=== PATIENT | male | born 1970 | race African-American/Black ===

== ENCOUNTER 2017-03-30 12:46 | Observation (INO) ==
[2017-03-30] MEDS ORDERED: ONDANSETRON 4 MG/2 ML VIAL IV PRN ×2 (13:08→15:24)
[2017-03-30] MEDS ORDERED: ENOXAPARIN 100 MG/ML SYRINGE SUBCUT STA (13:08)
[2017-03-30] MEDS ORDERED: ALUM/MAG/SIMETH/LIDO VISC 1:1 30 ML BOTTLE PO STA (13:08)
[2017-03-30] MEDS ORDERED: NITROGLYCERIN SL 0.4 MG TABLET SL PRN (13:08)
[2017-03-30] MEDS ORDERED: MORPHINE 2 MG/1 ML SYRINGE IV PRN ×2 (13:08→15:24)
[2017-03-30] MEDS ORDERED: ASPIRIN 325 MG TABLET PO STA (13:08)
[2017-03-30] MEDS ORDERED: NITROGLYCERIN 2% OINT 1 INCH/GM PACK TOP STA (13:08)
--- NOTE | 2017-03-30 13:09 | EKG Report ---
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
[2017-03-30 13:10] LABS: Basophils % 0.5 % (0.0-0.8); Eosinophils % 0.7 % (0.00-10.9); Hematocrit 39.5 VOL% (42.0-52.0); Hemoglobin 13.1 GM/DL (14.0-18.0); Lymphocytes # 2.3 10*3/uL (1.4-4.0); Lymphocytes % 51.7 % (21.2-54.2); Mean Corpuscular HGB Conc 33.2 GM/DL (32-36); Mean Corpuscular Hemoglobin 31 PG (27-34); Mean Corpuscular Volume 94.5 FL (87-102); Mean Platelet Volume 8.9 FL (9.6-12.0); Monocytes # 0.4 10*3/uL (0.11-0.8); Monocytes % 10.1 % (1.7-12.7); Neutrophils # 1.6 10*3/uL (1.4-7.4); Platelet Count 213 T/CUMM (130-400); Red Blood Count 4.18 MC/CUMM (3.8-5.5); Red Cell Distribution Width 12.4 % (9.3-17.3); White Blood Count 4.4 T/CUMM (4-12)
[2017-03-30 13:18] LABS: INR 1.3; PT Patient Result 14.4 SECS; Partial Thromboplastin Time 37.8 SECS (0-40)
[2017-03-30 13:37] LABS: Apearance,Urine CLEAR (Clear); Bilirubin,Urine Negative (Negative); Blood, Urine Negative (Negative); Glucose,Urine (UA) Negative (Negative); Ketones,Urine Negative (Negative); Mucus,Urine Occasional /LPF (Occasional); Nitrite,Urine Negative (Negative); Protein,Urine Negative; Sperm,Urine Occasional /HPF (Negative); Squamous Epithelial Cell,Urine Occasional /HPF (0-10); Urine Color Yellow (Yellow); Urine Specific Gravity 1.016 (1.001-1.035); Urine Urobilinogen < 2.0 EU/DL (0.2-1.0); WBC,Urine <1 /HPF (0-6)
--- NOTE | 2017-03-30 13:37 | Emergency Department Note ---
Omer Frey Hilary, am scribing for, and in the presence of, Rigoberto Melvin MD 13: 30. Ngozi Frey James D, MD, personally performed the services described in this documentation, ascribed by Porsha Tello in my presence, and it is both accurate and complete [id number] . Arrival - Arrival Chief Complaint: Chest Pain Stated Complaint: chest pain times 2-3 weeks ED Nursing Triage Note: Patient transferred from Dr. Can office for complaint of chest pain that started 2-3 weeks ago. He reports his pain was worse yesterday in comparison to today. His pain is midsternal and radiates to his left arm and jaw. Mode of Arrival: Stretcher Limitations: No Limitations Source: Patient, RN Notes Reviewed Time Seen by Provider: 03/30/17 13:08 - History of Present Illness HPI Narrative: Pt is a 46 y/o male transferred from Dr. Can's office for c/o chest pain which onset 2-3 weeks ago. He confirms SOB, nausea and chest pain but denies diaphoresis. Pt says that when the pain come on it isn't generally due to exertion or activity but once it starts he gets SOB real quick. He confirms to smoking a pack every day and a half and is trying to quit with the patch but Dr Can wouldn't give it to him with his chest pain. Pt was given a nitro tablet and states the pain is resolved now. Allergies/Adverse Reactions: Allergies Allergy/AdvReac Type Severity Reaction Status Date / Time No Known Allergies Allergy Unverified 02/09/16 08:45 Home Medications: Home Medications Medication Instructions Recorded Confirmed Type No Known Home Medications [No 03/30/17 03/30/17 History Known Home Medications] Review of System - Review of System 12 point system: reviewed and no additional remarkable complaints except as stated - Review of System Constitutional: Absent: diaphoresis, fever Respiratory: Present: respiratory distress. Absent: cough Cardiovascular: Present: chest pain Gastrointestinal: Present: nausea. Absent: vomiting Musculoskeletal: Present: arm pain (left arm pain) Medical,Surgical,& Family Hx - Medical History Respiratory: History of: COPD - Family History Family History: Reports;: Family Cancer (father had prostate cancer and maternal grandfather also had cancer ) - Social History Smoking Status: Current every day smoker Type of Drug Use: Marijuana Exam Physical Examination: GENERAL: This is a well-nourished, well-developed male in no apparent distress. VITAL SIGNS: Temperature: 97.0 Pulse: 71 Respiratory: 20 Blood Pressure: 132/ 81 O2SAT: 100 HEENT: Head is normocephalic and atraumatic. Pupils are equally round and reactive to light. Extraocular movement are intact. Oropharynx is benign with moist mucous membranes. NECK: Neck is soft and supple without tenderness. There are no masses. There is no lymphadenopathy. LUNGS: Lungs are clear to auscultation bilaterally. Chest rises symmetrically. There is no chest wall tenderness. CV: Heart is regular rate and rhythm without murmurs, rubs, or gallops. ABDOMEN:Abdomen is soft, non-tender to palpation. There are no abnormal masses palpated. There is no organomegaly. Bowel sounds are present and active. SKIN: Skin is warm and dry. No rash. EXTREMITIES: Patient has full range of motion without tenderness. There is no pedal edema. NEUROLOGIC: Awake, alert, and oriented x4. Cranial nerves II through XII are grossly intact. There are no motorsensory deficits. PSYCHIATRIC: Normal affect. Normal mood. Vital Signs: Vital Signs Temperature 97.0 F L 03/30/17 12:48 Pulse Rate 71 03/30/17 12:48 Respiratory Rate 20 03/30/17 13:06 Blood Pressure 132/81 03/30/17 12:48 O2 Sat by Pulse Oximetry 100 03/30/17 12:48 Course - Consultations Consultation #1: Discussed with hospitalist. Patient will be admitted to their service. Time: 14:24 Results - Labs CBC & BMP: 03/30/17 13:00 03/30/17 13:00 Lab Results: I have reviewed the patients labs Labs: Laboratory Tests 03/30/17 13:00 WBC 4.4 RBC 4.18 Hgb 13.1 L Hct 39.5 L MPV 8.9 L Neut % (Auto) 37.0 L Laboratory Tests 03/30/17 03/30/17 03/30/17 13:00 13:00 13:00 Sodium 138 Potassium 4.0 Chloride 105 Carbon Dioxide 28 Calculated Osmolality 272.7 L Urine Urobilinogen < 2.0 H U Cannabinoids Screen Positive H - EKG EKG results: interpreted by ERMD - Impressions EKG: Sinus bradycardia with a rate of 59, nonspecific intraventricular conduction delay, early repolarization, normal axis. - Diagnostic Findings Procedure: Chest x-ray: image reviewed by me (No infiltrates, no pleural effusions, no cardiomegaly.) Disposition Clinical Impression: Chest pain, Family history of coronary artery disease in mother Case discussed with: patient Disposition: Still a Patient Condition: Stable
[2017-03-30 13:40] LABS: Alanine Aminotransferase 19 U/L (16-61); Albumin 3.7 G/DL (3.4-5.0); Alkaline Phosphatase 74 U/L (45-117); Aspartate Amino Transferase 16 U/L (0-37); Bilirubin,Total < 0.39 MG/DL (0.2-1.0); Blood Urea Nitrogen 10 MG/DL (7-18); Calcium 8.9 MG/DL (8.5-10.1); Glucose 84 MG/DL (74-106); Osmolality,Calculated 272.7 MOS/KG (273-304); Sodium 138 MMOL/L (136-145); Troponin I Only < 0.015 NG/ML (0.00-0.045)
[2017-03-30] MEDS ORDERED: NITROGLYCERIN 2% OINT 1 INCH/GM PACK TOP ONE (13:42)
[2017-03-30] MEDS ORDERED: ASPIRIN 325 MG TABLET ONE (13:42)
[2017-03-30] MEDS ORDERED: ALUM/MAG/SIMETH/LIDO VISC 1:1 30 ML BOTTLE PO ONE (13:42)
[2017-03-30 13:45] LABS: Barbiturates Screen,Urine Negative (Negative); Benzodiazepines Screen,Urine Negative (Negative); Cannabinoid Screen,Urine Positive (Negative); Opiate Screen,Urine Negative (Negative); Phencyclidine Screen,Urine Negative (Negative)
[2017-03-30] MEDS ORDERED: ENOXAPARIN 100 MG/ML SYRINGE SUBCUT ONE (13:47)
--- NOTE | 2017-03-30 14:34 | XRay Report ---
Exam: Chest 2 views Date: March 30, 2017 at 1:13 PM Comparison: None Reason: Shortness of breath Findings: The cardiac silhouette is normal in size. No focal consolidation, pneumothorax or pleural effusion is identified. No acute osseous process is seen. Impression: No acute cardiopulmonary process is identified. PROCEDURE INTERPRETED AT [facility] DEPARTMENT OF RADIOLOGY Final Report Signed by: Dr. Vicente Vargas
--- NOTE | 2017-03-30 15:21 | Hospitalist History & Physical ---
<Kamla Matthew - Last Filed: 03/30/17 15:14> Assessment and Plan - Time spent with patient Time spent with patient: Greater than 30 minutes (1) Chest pain Status: Acute Assessment and plan: Mr. Friedman 46-year-old -[place] male [facility]. Patient will be admitted to telemetry for cardiac monitoring, cardiology consult, serial EKGs and troponins. Patient has been discussed with Dr. Garcia and further recommendations to follow. Current Visit: Yes (2) Family history of coronary artery disease in mother Status: Acute Current Visit: Yes (3) Frequent headaches Status: Acute Current Visit: Yes History of Present Illness Chief complaint: Chest pain History of present illness: Mr. Friedman is a 46 year old male with history of COPD and smokes one half packs of cigarettes per day presenting to the ED from Dr. Can's office with complaints of chest pain. Patient states he had a follow-up appoint with Dr. Can and was trying to get some patches to stop smoking until Dr. Can he been having chest pains for the last 2-3 weeks. Patient states the pain is intermittent rates it about a 5 out of 10 but he states it got worse last night and this morning. Patient states with the left side of his chest that radiated to his left shoulder and jaw. Patient states the pain is associated with some shortness of breath and nausea but no diaphoresis. Patient is also complaining of frequent headaches over the last 3-4 months as well. Patient states when he does do strenuous activity like walking up the stairs he does get short of breath and had chest pain as well. Patient has a family history of MIs. Upon exam patient has no complaints of chest pain at this time. He states the pain went away with nitroglycerin tab. He is afebrile vital signs are stable and his labs are normal. First set of troponins are negative and his EKG is okay. After discussion with Dr. Melvin the ED physician Dr. Garcia the hospitalist, it was decided patient would be admitted for chest pain rule out. Home Medications Medication Instructions Recorded Confirmed Type No Known Home Medications [No 03/30/17 03/30/17 History Known Home Medications] Allergies Allergy/AdvReac Type Severity Reaction Status Date / Time No Known Allergies Allergy Unverified 02/09/16 08:45 Medical,Surgical,& Family Hx - Medical History Respiratory: History of: COPD - Surgical History Cardiac Surgeries: Patient Denies: Cardiac Catheterization Abdominal Surgeries: Patient denies: Cholecystectomy - Family History Family History: Reports;: Family Cancer (father had prostate cancer and maternal grandfather also had cancer ), Family Heart Disease, Family Hypertension - Social History Smoking Status: Current every day smoker Have you smoked in the last 12 months: Yes Time spent discussing smoking cessation with patient: 3 to 10 minutes Frequency of Alcohol Use: None Type of Drug Use: Marijuana Functional capacity: independent ambulation Review of systems: A complete 10 system review of systems was obtained and pertinent negatives and positives per HPI Exam - Constitutional Vitals: Period Temp Pulse Resp BP Sys/Love Pulse Ox Last 24 Hr 97.0 F-97.0 F 71-71 20-20 132-132/81-81 100 Exam: Constitutional System: No distress. No tremulousness. Head: Normocephalic, atraumatic. Ears, Nose and Throat System: No evidence of Otitis or Mastoiditis. No epistaxis or discharge Eyes System: Pupils equal, round, and reactive. Extraocular muscles intact. Neck: Supple, without adenopathy, No jugular venous distention. No thyromegaly, neck mass, or prior surgery apparent. Respiratory System: Chest clear to auscultation. Cardiovascular System: Heart with regular rate and rhythm. No murmur. GI System: Abdomen soft, nontender. Normo active bowel sounds present. Musculoskeletal System: limbs with no pedal edema. Full distal pulses. Neurological System: No discernable sensory deficit. No aphasia Psychiatric System: Conversation is rational Results - Labs CBC & BMP: 03/30/17 13:00 03/30/17 13:00 Lab Results: I have reviewed the past 24 hour labs - Diagnostic Findings Procedure: Chest x-ray: report reviewed by me (Normal) <Alfa Garcia - Last Filed: 03/30/17 16:28> Assessment and Plan (1) Chest pain Status: Acute Assessment and plan: Assuming that the troponins are negative, the patient should likely have a stress test. If it is normal, we can discharge him home. Cardiology has been consulted for performance of the stress test. This note was completed using [employer] voice recognition software. There may be clay artist errors as a result. Current Visit: Yes History of Present Illness History of present illness: Mr. Friedman is a 46 year old male The patient has an intermittent history of chest pain as described above. He says that he has spells for 2 or 3 days at a time, and then they just resolve spontaneously. He notes some radiation into his back, and also into his neck. There is no significant associated dyspnea or nausea. He smokes, and also has a strong family history of heart disease. He reports no other medical problems except for COPD. Results - Labs CBC & BMP: 03/30/17 13:00 03/30/17 13:00 Lab Results: I have reviewed the past 24 hour labs (EKG shows a sinus mechanism with global J-point elevation, consistent with early repolarization)
[2017-03-30] MEDS ORDERED: diphenhydrAMINE CAP 25 MG CAPSULE PO PRN (15:24)
[2017-03-30] MEDS ORDERED: PROMETHAZINE 25 MG TABLET PO PRN (15:24)
[2017-03-30] MEDS ORDERED: DOCUSATE SODIUM 100 MG CAPSULE PO PRN (15:24)
[2017-03-30] MEDS ORDERED: NICOTINE 21 MG/24 HR PATCH TRANSDERM PRN (15:24)
[2017-03-30] MEDS ORDERED: ACETAMINOPHEN 325 MG TABLET PO PRN (15:24)
[2017-03-30] MEDS ORDERED: guaiFENesin/DM ER 600-30 MG TABLET PO PRN (15:24)
--- NOTE | 2017-03-30 16:28 | EKG Report ---
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
[2017-03-30 17:05] LABS: Troponin I Only < 0.015 NG/ML (0.00-0.045)
[2017-03-30 17:12] LABS: Risk Ratio 4.83; Thyroid Stimulating Hormone 1.67 uIU/ml (0.358-3.74); VLDL CHOLESTEROL 13.2 MG/DL
[2017-03-30] MEDS: PANTOPRAZOLE 40 MG TABLET PO SCH (17:39)
[2017-03-30] MEDS: SODIUM CHLORIDE 0.9% 1,000 ML IV SCH (17:40)
[2017-03-31 02:30] LABS: Troponin I Only < 0.015 NG/ML (0.00-0.045)
[2017-03-31 06:26] LABS: Basophils % 0.5 % (0.0-0.8); Eosinophils # 0.1 10*3/uL (0.0-0.87); Eosinophils % 1.3 % (0.00-10.9); Hematocrit 36.7 VOL% (42.0-52.0); Hemoglobin 12.4 GM/DL (14.0-18.0); Lymphocytes # 1.9 10*3/uL (1.4-4.0); Lymphocytes % 49.1 % (21.2-54.2); Mean Corpuscular HGB Conc 33.8 GM/DL (32-36); Mean Corpuscular Hemoglobin 31 PG (27-34); Mean Corpuscular Volume 91.3 FL (87-102); Mean Platelet Volume 9.4 FL (9.6-12.0); Monocytes # 0.5 10*3/uL (0.11-0.8); Monocytes % 13.5 % (1.7-12.7); Neutrophils # 1.4 10*3/uL (1.4-7.4); Neutrophils % 35.6 % (38.7-73.9); Platelet Count 211 T/CUMM (130-400); Red Blood Count 4.02 MC/CUMM (3.8-5.5); Red Cell Distribution Width 12.3 % (9.3-17.3); White Blood Count 3.9 T/CUMM (4-12)
[2017-03-31 06:55] LABS: Hypochromasia 1+; Lymphocytes 44 % (20-55); Platelet Estimate Adequate; Segmented Neutrophils 38 % (50-85); Total Cells Counted 100
[2017-03-31 07:00] LABS: Troponin I Only < 0.015 NG/ML (0.00-0.045)
[2017-03-31] MEDS: SODIUM CHLORIDE 0.9% 1,000 ML IV SCH ×2 (07:00→07:22)
[2017-03-31 07:03] LABS: Calcium 8.6 MG/DL (8.5-10.1); Osmolality,Calculated 278.4 MOS/KG (273-304); Potassium 4.2 MMOL/L (3.5-5.1)
[2017-03-31] MEDS: PANTOPRAZOLE 40 MG TABLET PO SCH (08:30)
[2017-03-31] MEDS ORDERED: ENOXAPARIN 40 MG/0.4 ML SYRINGE SUBCUT SCH (09:00)
[2017-03-31] MEDS ORDERED: ASPIRIN EC 81 MG TABLET PO SCH (11:30)
[2017-03-31 11:50] VITALS: BP 114/66
--- NOTE | 2017-03-31 12:28 | Discharge Summary ---
Hospital Course - Hospital Course Hospital Course: This patient was admitted to the hospital with atypical chest discomfort. Myocardial infarction was ruled out by EKG and enzymes. The patient had cardiology evaluation with Dr. Best the following day. Dr. Best felt that outpatient stress test was indicated and was arranging appointment for the patient to follow-up for the stress test. The patient is not any chest pain at present time and is stable. The patient is ready for discharge home and follow- up with Dr. Can as an outpatient. At the time of discharge, chest clear, abdomen soft, extremities without edema. [id number] discharge time 28 minutes - Time spent with patient Time with patient DS: Less than 30 minutes Diagnosis - Discharge Diagnosis (1) Chest pain Status: Resolved (2) Hypercholesterolemia Status: Chronic Specialty Discharge - Follow Up or Referrals Follow up with: Rufino Best MD [Physician] - 1 Week (Patient will need to be set up for outpatient stress test at [facility]. He will need to follow up with Dr. Best in clinic after stress test will also need EKG, CBC, BMP with Mg+.) Discharge Plan - Discharge Data Disposition: Disch To Home/Self Care Condition at Discharge: Stable Discharge Diet: heart healthy Activity: resume usual activities as tolerated - Discharge Medications New Atorvastatin [Lipitor] 10 mg PO BEDTIME #60 tablet Aspirin EC Tab 81 mg PO DAILY tablet - Follow Up or Referral Follow Up: Rufino Best MD [Physician] - 1 Week (Patient will need to be set up for outpatient stress test at [facility]. He will need to follow up with Dr. Best in clinic after stress test will also need EKG, CBC, BMP with Mg+.) - Forms/Instructions Exam - Constitutional Vitals: Period Temp Pulse Resp BP Sys/Love Pulse Ox Last 24 Hr 97.4 F-98.2 F 69-74 18-69 114-122/56-71 94-100 Discharge Results Labs on day of discharge: Labs from last 24 hours 03/31/17 03/31/17 03/31/17 06:02 06:02 06:01 WBC 3.9 L RBC 4.02 Hgb 12.4 L Hct 36.7 L MCV 91.3 MCH 31 MCHC 33.8 RDW 12.3 Plt Count 211 MPV 9.4 L Neut % (Auto) 35.6 L Lymph % (Auto) 49.1 [place] % (Auto) 13.5 H Eos % (Auto) 1.3 Baso % (Auto) 0.5 Neut # (Auto) 1.4 Lymph # (Auto) 1.9 [place] # (Auto) 0.5 Eos # (Auto) 0.1 Baso # (Auto) 0.0 Total Counted 100 Immature Gran % 0.0 Nucleated RBC % 0.0 Immature Gran # 0.00 Segmented Neutrophils 38 L Lymphocytes 44 Monocytes 17 H Basophils 1.0 H Nucleated RBCs # 0.00 Platelet Estimate Adequate Hypochromasia 1+ Morphology Comment Sodium 140 Potassium 4.2 Chloride 107 Carbon Dioxide 25 Anion Gap 12.2 BUN 12 Creatinine 1.20 GFR Calculation 94 BUN/Creatinine Ratio 10.00 Glucose 94 Calculated Osmolality 278.4 Calcium 8.6 Magnesium 2.0 Total Creatine Kinase 159 CK-MB (CK-2) < 1.0 Troponin I < 0.015 Triglycerides Cholesterol LDL Cholesterol VLDL Cholesterol HDL Cholesterol Heart Disease Risk Ratio Free T4 TSH 3rd Generation 03/30/17 03/30/17 03/30/17 23:56 18:43 16:28 WBC RBC Hgb Hct MCV MCH MCHC RDW Plt Count MPV Neut % (Auto) Lymph % (Auto) [place] % (Auto) Eos % (Auto) Baso % (Auto) Neut # (Auto) Lymph # (Auto) [place] # (Auto) Eos # (Auto) Baso # (Auto) Total Counted Immature Gran % Nucleated RBC % Immature Gran # Segmented Neutrophils Lymphocytes Monocytes Basophils Nucleated RBCs # Platelet Estimate Hypochromasia Morphology Comment Sodium Potassium Chloride Carbon Dioxide Anion Gap BUN Creatinine GFR Calculation BUN/Creatinine Ratio Glucose Calculated Osmolality Calcium Magnesium Total Creatine Kinase 163 175 CK-MB (CK-2) < 1.0 < 1.0 Troponin I < 0.015 < 0.015 < 0.015 Triglycerides Cholesterol LDL Cholesterol VLDL Cholesterol HDL Cholesterol Heart Disease Risk Ratio Free T4 TSH 3rd Generation 03/30/17 03/30/17 16:28 16:28 WBC RBC Hgb Hct MCV MCH MCHC RDW Plt Count MPV Neut % (Auto) Lymph % (Auto) [place] % (Auto) Eos % (Auto) Baso % (Auto) Neut # (Auto) Lymph # (Auto) [place] # (Auto) Eos # (Auto) Baso # (Auto) Total Counted Immature Gran % Nucleated RBC % Immature Gran # Segmented Neutrophils Lymphocytes Monocytes Basophils Nucleated RBCs # Platelet Estimate Hypochromasia Morphology Comment Sodium Potassium Chloride Carbon Dioxide Anion Gap BUN Creatinine GFR Calculation BUN/Creatinine Ratio Glucose Calculated Osmolality Calcium Magnesium Total Creatine Kinase CK-MB (CK-2) Troponin I Triglycerides 66 Cholesterol 251 H LDL Cholesterol 176.0 VLDL Cholesterol 13.2 HDL Cholesterol 52 Heart Disease Risk Ratio 4.83 Free T4 0.96 TSH 3rd Generation 1.670 DS: Provider Date of admission: 03/30/17 14:36 Primary care physician: . No PCP Attending physician on admission: Alfa Garcia MD Consults: 03/30/17 15:24 Consult to Physician [CONS] Routine Comment: chest pain rule out Consulting Provider: Cardiology - [facility] When should Consulting Provider be notified: Now Consult to Specialist Group: Cardiology Person Notified: SUJIT Date Notified: 03/31/17 Time Notified: 08:10 03/30/17 17:15 Consult to Pharmacy [CONS] Routine Reason for Pharmacy Consult: Adjust Meds Renal Funct Discharging clinician: Lew Porter MD
--- NOTE | 2017-03-31 12:30 | Cardiology Consult Note ---
I, Maria L Anderson RN, am scribing for, and in the presence of, Rufino Best MD 12:29. Assessment and Plan - Time spent with patient Time spent with patient: Greater than 30 minutes (Due to assessment, planning, documentation, and medication review) (1) Chest pain Status: Acute Assessment and plan: The patient has atypical chest discomfort with negative cardiac enzymes and EKG. I do think with his risk factors she should get cardiac ischemic screening. I discussed doing this as an inpatient versus an outpatient, and he strongly prefers to be discharged home and get this done as an outpatient. I would like for him to get a nuclear stress test at [facility], and he can follow-up with me after the stress test has been completed. He will also need EKG, CBC, BMP and a magnesium level. We will add ASA 81 mg by mouth daily. From a cardiac standpoint, he is stable for discharge home and outpatient workup /follow-up. Current Visit: Yes (2) Hypercholesterolemia Status: Acute Assessment and plan: Per fasting lipid panel, his cholesterol level was noted to be elevated at 251 with normal triglyceride level of 66. We will add low-dose atorvastatin 10 mg by mouth nightly. Current Visit: Yes (3) Tobacco use Status: Chronic Assessment and plan: Smoking cessation was addressed. Current Visit: Yes (4) Family history of coronary artery disease in mother Status: Chronic Current Visit: No History of Present Illness - Data of Consult Patient: new to practice Consult date: 03/31/17 Requesting Physician: Kamla Matthew - Consult Narrative Reason for consult: chest pain History of present illness: PRIMARY SIGN LANGUAGE TRANSLATOR: NONE PCP: DR. NATALIE NOEL Mr. Estes is a 46 year old black male who has never been evaluated by a visual c developer. Risk factors significant for: Hypercholesterolemia (per [facility] this admission), tobacco abuse, and family history of coronary artery disease. Past medical history includes COPD. Patient was admitted to telemetry floor yesterday after presenting to the emergency room from Dr. Noel's office for complaints of chest pain. EKG was negative for acute, ischemic finding. Serial cardiac biomarkers have been negative. He did receive sublingual nitroglycerin 1 per EMS while in route to the emergency room yesterday, and his chest pain was relieved. Cardiology has been consulted to evaluate chest pain and rule out cardiac etiology. The patient describes a very atypical chest discomfort. It is like a pressure in the center of his chest, but it is present for days at a time. On a scale of 0-10, he rates his chest discomfort as 5, and on occasion he does admit to the chest pressure radiating to his left arm and occasionally to left jaw. No associated diaphoresis, presyncope, palpitations, but he does experience nausea with no vomiting. He cannot identify any aggravating or alleviating factors. He also reports to sometimes experiencing the same type of chest pressure while at rest, but reports that it usually goes away on its own. It is not associated with exertion. The Patient does smoke cigarettes and admits to a half pack per day since the age of 15. EKG today reveals sinus rhythm, pulse rate 70s, and no acute ST segment changes. Labs reviewed. Anemia noted with H&H of 12.4 and 30 6. and normal platelet count 211,000. Potassium is 4.2 and magnesium 2.0 his creatinine is 1.2 with a GFR of 94. UDS positive for cannabinoids. Current Medications Acetaminophen (Tylenol Tab) 325 mg PO Q4H PRN PRN Reason: fever, headache/body aches Last Admin: 03/30/17 18:44 Dose: 325 mg Hydrocodone Bitart/Acetaminophen ([place] 5-325) 1 tablet PO Q4H PRN PRN Reason: Pain Mild (1-3) Diphenhydramine HCl (Benadryl Cap) 25 mg PO Q6H PRN PRN Reason: Itching Docusate Sodium (Colace Cap) 100 mg PO BID PRN PRN Reason: Constipation Enoxaparin Sodium (Lovenox) 40 mg SUBCUT Q24H [facility] Last Admin: 03/31/17 08:30 Dose: 40 mg Guaifenesin/Dextromethorphan (Mucinex Dm) 1 tablet PO BID PRN PRN Reason: Congestion Sodium Chloride (Ns) 1,000 mls @ 75 mls/hr IV .[id number] [facility] Last Admin: 03/31/17 07:22 Dose: Not Given Morphine Sulfate () 2 mg IV 1X ED PRN PRN Reason: Chest Pain Morphine Sulfate () 2 mg IV Q4H PRN PRN Reason: Pain Severe (8-10) Nicotine (Nicoderm Cq 21) 1 patch TRANSDERM DAILY PRN PRN Reason: Nicotine Cravings Last Admin: 03/30/17 18:45 Dose: 1 patch Nitroglycerin (Nitrostat) 0.4 mg SL Q5M PRN PRN Reason: Chest Pain Ondansetron HCl (Zofran Inj) 4 mg IV 1X ED PRN PRN Reason: Nausea Ondansetron HCl (Zofran Inj) 4 mg IV Q4H PRN PRN Reason: Nausea Pantoprazole Sodium (Protonix Tab) 40 mg PO DAILY [facility] Last Admin: 03/31/17 08:30 Dose: 40 mg Promethazine HCl (Phenergan Tab) 25 mg PO Q6H PRN PRN Reason: Nausea CC: Lew Porter MD - Home Medications and Allergies Home Medications: Home Medications Medication Instructions Recorded Confirmed Type No Known Home Medications [No 03/30/17 03/30/17 History Known Home Medications] Allergies/Adverse Reactions: Allergies Allergy/AdvReac Type Severity Reaction Status Date / Time No Known Allergies Allergy Unverified 02/09/16 08:45 - Constitutional Constitutional: Absent: anorexia, chills, daytime sleepiness, excessive sweating , fatigue, fever(s), frequent falls, night sweats, stops breathing during sleep , weakness, weight gain, weight loss - EENT Eyes: Absent: blurry vision, loss of vision Nose, mouth and throat: Absent: dysphagia, epistaxis, neck mass, neck pain, throat swelling, tongue swelling - Cardiovascular Cardiovascular: Present: chest pain at rest, chest pain with activity, dyspnea on exertion, radiating jaw, neck or arm pain. Absent: claudication, diaphoresis , dyspnea, edema, lightheadedness, orthopnea, palpitations, PND - Respiratory Respiratory: Present: cough, dyspnea on exertion, wheezing. Absent: dyspnea, hemoptysis, pain on inspiration, change in phlegm color - Gastrointestinal Gastrointestinal: Absent: abdominal pain, constipation, diarrhea, dysphagia, early satiety, hematemesis, melena, nausea, vomiting, jaundice - Genitourinary Genitourinary: Present: testicular mass. Absent: dysuria, flank pain, hematuria , nocturia - Musculoskeletal Musculoskeletal: Absent: arthralgias, joint swelling, myalgias - Neurological Neurological: Absent: abnormal gait, abnormal speech, behavioral changes, convulsions, dizziness, syncope, tremor(s) - Psychiatric Psychiatric: Absent: anxiety, confusion, depression - Endocrine Endocrine: Absent: cold intolerance, heat intolerance - Hematologic/Lymphatic Hematologic/Lymphatic: Absent: easy bleeding, easy bruising Medical,Surgical,& Family Hx - Medical History Cardio: No history of: Cardiac Dysrhythmia, CHF, CAD, Hypertension, MA, PVD, Valvular Heart Disease Psychological: No history of: Anxiety Disorders Neurology: No history of: Cerebrovascular Accident, Dementia Endocrine: No history of: Diabetes Mellitus (IDDM), Diabetes Mellitus (NIDDM), Dyslipidemia, Thyroid Disorder Respiratory: History of: COPD No history of: Obstructive Sleep Apnea, Pulmonary Embolism Renal: No history of: Renal Failure, Renal Problems Genitourinary: No history of: Prostate Problems Gastrointestinal: No history of: Esophageal Varices, GERD, Gastrointestinal Bleed Musculoskeletal: History of: Back/Neck Problems No history of: Degenerative Disk Disease Hematology: No history of: Anemia, Blood Transfusion Reaction Other: No history of: Cancer - Surgical History Cardiac Surgeries: Patient Denies: Cardiac Catheterization, Cardiac Surgery Abdominal Surgeries: Patient denies: Cholecystectomy - Family History Family History: Reports;: Family Cancer (father had prostate cancer and maternal grandfather also had cancer ), Family Heart Disease, Family Hypertension - Social History Smoking Status: Current every day smoker Frequency of Alcohol Use: None Type of Drug Use: Marijuana Physical Examination Vital Signs Temp Pulse Resp BP Pulse Ox 97.0 F L 71 20 132/81 100 03/30/17 12:48 03/30/17 12:48 03/30/17 12:48 03/30/17 12:48 03/30/17 12:48 General: Present: No Apparent Distress HEENT: Present: PERRL, Normocephaly Neck: Present: Supple Neck, Midline Trachea, No JVD/HJR, No Masses, No Bruit Cardiac: Present: Reg Rate and Rhythm, No Murmur. Absent: Tachycardia, Bradycardia Lungs: Present: Clear Ascult./Percussion, Wheezes (Slight inspirational wheezes throughout) Neuro: Present: Grossly Intact. Absent: Numbness, Tingling, Weakness, Resting Tremor, Essential Tremor Abdomen: Present: Soft, Active Bowel Sounds, No Masses, No Pulsations/Bruits. Absent: Tender, Firm, Distended Skin: Present: Clear. Absent: Rash, Suspicious Lesions Musculoskeletal: Present: No Fluid Collection, Normal Range of Motion Extremities: Present: No Clubbing, No Cyanosis, No Edema, Normal Upper Extr. Pulses (3+ bilateral), Normal Lower Extr. Pulses (3+ bilateral), Capillary Refill (Normal). Absent: Edema Result/EKG - Labs CBC & BMP: 03/31/17 06:02 03/31/17 06:01 Lab Results: I have reviewed the past 24 hour labs Labs: Laboratory Results - last 24 hr 03/30/17 03/30/17 03/30/17 16:28 16:28 16:28 WBC RBC Hgb Hct MCV MCH MCHC RDW Plt Count MPV Neut % (Auto) Lymph % (Auto) [place] % (Auto) Eos % (Auto) Baso % (Auto) Neut # (Auto) Lymph # (Auto) [place] # (Auto) Eos # (Auto) Baso # (Auto) Total Counted Immature Gran % Nucleated RBC % Immature Gran # Segmented Neutrophils Lymphocytes Monocytes Basophils Nucleated RBCs # Platelet Estimate Hypochromasia Morphology Comment Sodium Potassium Chloride Carbon Dioxide Anion Gap BUN Creatinine GFR Calculation BUN/Creatinine Ratio Glucose Calculated Osmolality Calcium Magnesium Total Creatine Kinase 175 CK-MB (CK-2) < 1.0 Troponin I < 0.015 Triglycerides 66 Cholesterol 251 H LDL Cholesterol 176.0 VLDL Cholesterol 13.2 HDL Cholesterol 52 Heart Disease Risk Ratio 4.83 Free T4 0.96 TSH 3rd Generation 1.670 03/30/17 03/30/17 03/31/17 18:43 23:56 06:01 WBC RBC Hgb Hct MCV MCH MCHC RDW Plt Count MPV Neut % (Auto) Lymph % (Auto) [place] % (Auto) Eos % (Auto) Baso % (Auto) Neut # (Auto) Lymph # (Auto) [place] # (Auto) Eos # (Auto) Baso # (Auto) Total Counted Immature Gran % Nucleated RBC % Immature Gran # Segmented Neutrophils Lymphocytes Monocytes Basophils Nucleated RBCs # Platelet Estimate Hypochromasia Morphology Comment Sodium 140 Potassium 4.2 Chloride 107 Carbon Dioxide 25 Anion Gap 12.2 BUN 12 Creatinine 1.20 GFR Calculation 94 BUN/Creatinine Ratio 10.00 Glucose 94 Calculated Osmolality 278.4 Calcium 8.6 Magnesium 2.0 Total Creatine Kinase 163 CK-MB (CK-2) < 1.0 Troponin I < 0.015 < 0.015 Triglycerides Cholesterol LDL Cholesterol VLDL Cholesterol HDL Cholesterol Heart Disease Risk Ratio Free T4 TSH 3rd Generation 03/31/17 03/31/17 06:02 06:02 WBC 3.9 L RBC 4.02 Hgb 12.4 L Hct 36.7 L MCV 91.3 MCH 31 MCHC 33.8 RDW 12.3 Plt Count 211 MPV 9.4 L Neut % (Auto) 35.6 L Lymph % (Auto) 49.1 [place] % (Auto) 13.5 H Eos % (Auto) 1.3 Baso % (Auto) 0.5 Neut # (Auto) 1.4 Lymph # (Auto) 1.9 [place] # (Auto) 0.5 Eos # (Auto) 0.1 Baso # (Auto) 0.0 Total Counted 100 Immature Gran % 0.0 Nucleated RBC % 0.0 Immature Gran # 0.00 Segmented Neutrophils 38 L Lymphocytes 44 Monocytes 17 H Basophils 1.0 H Nucleated RBCs # 0.00 Platelet Estimate Adequate Hypochromasia 1+ Morphology Comment Sodium Potassium Chloride Carbon Dioxide Anion Gap BUN Creatinine GFR Calculation BUN/Creatinine Ratio Glucose Calculated Osmolality Calcium Magnesium Total Creatine Kinase 159 CK-MB (CK-2) < 1.0 Troponin I < 0.015 Triglycerides Cholesterol LDL Cholesterol VLDL Cholesterol HDL Cholesterol Heart Disease Risk Ratio Free T4 TSH 3rd Generation - Diagnostic Findings Procedure: Chest x-ray: image reviewed by me, report reviewed by me (03/30/17: No acute cardiopulmonary process.) - EKG EKG results: interpreted by me, no acute changes EKG shows: sinus rhythm Specialty Discharge - Follow Up or Referrals Follow up with: Rufino Best MD [Physician] - 1 Week (Patient will need to be set up for outpatient stress test at [facility]. He will need to follow up with Dr. Best in clinic after stress test will also need EKG, CBC, BMP with Mg+.) Estephania Frey Michael, MD, personally performed the services described in this documentation, ascribed by Maria L Anderson, EMY in my presence, and it is both accurate and complete .
[2017-03-31] MEDS ORDERED: ATORVASTATIN 10 MG TABLET PO SCH (21:00)
== END 2017-03-31 14:40 | disposition home or self-care (01) ==
LOC: EDUNIT# → N.EDINP 12:46 → N.ED 12:46 → SUATTDRO 14:36 → N.TELES 16:01
PROVIDERS: ADMIT Internal Medicine Geriatric Medicine; ATTEND Internal Medicine